=== PATIENT | female | born 1965 | race African-American/Black ===

== ENCOUNTER 2020-12-20 17:53 | Emergency (ER) | payer MEDICAID, MEDICARE ==
[~2020-12-20] VITALS: Ht 154.9 cm; Wt 97.1 kg
--- NOTE | 2020-12-20 18:05 | NUR ---
GLENN MARTINEZIGRIKIDANISHA AT THE BEDSIDE
--- NOTE | 2020-12-20 18:10 | NUR ---
THE PATIENT IS PRESENTS TO ER FOR RT KNEE PAIN X 3 WKS. RATES PAIN 6/10. NO APPARENT DEFORMITY NOTED. WILL CONTINUE TO MONITOR THE PATIENT.
--- NOTE | 2020-12-20 18:19 | NUR ---
X-RAY TECH AT THE BEDSIDE
[2020-12-20] MEDS ORDERED: HYDROCODONE/APAP 5/325MG TABLET ONE (18:27)
[2020-12-20] MEDS ORDERED: HYDROCODONE/APAP 5/325MG TABLET PO ONE (18:30)
[2020-12-20] MEDS ORDERED: HYDR-3980 PO (19:24)
[2020-12-20] MEDS ORDERED: NAPR-1009 PO (19:24)
--- NOTE | 2020-12-20 19:25 | NUR ---
REPORT GIVEN TO NURSE LUTHER
--- NOTE | 2020-12-20 19:50 | NUR ---
Patient discharged to home in stable condition. Written and verbal after care instructions given. Patient verbalizes understanding of instruction and RX. Picked up by .
[2020-12-20 19:52] VITALS: BP 131/76
== END 2020-12-20 19:53 | disposition home or self-care (01) ==
LOC: ER 17:53
DX: M25.561 Pain in right knee (principal); E66.01 Morbid (severe) obesity due to excess calories; I10 Essential (primary) hypertension; J44.9 Chronic obstructive pulmonary disease, unspecified; K21.9 Gastro-esophageal reflux disease without esophagitis; Z68.41 Body mass index [BMI] 40.0-44.9, adult; Z96.652 Presence of left artificial knee joint; Z85.3 Personal history of malignant neoplasm of breast; Z90.10 Acquired absence of unspecified breast and nipple; Z90.710 Acquired absence of both cervix and uterus; Z88.0 Allergy status to penicillin; Z88.8 Allergy status to other drugs, medicaments and biological substances; Z79.899 Other long term (current) drug therapy
CPT/HCPCS: 73564-TC